=== PATIENT | female | born 1995 | race Caucasian/White ===

== ENCOUNTER 2019-07-23 06:28 | Emergency (ER) | payer OTHER ==
[2019-07-23 06:42] VITALS: TEMP 98
[2019-07-23] MEDS ORDERED: KETOROLAC 60 MG/2 ML VIAL IM STA (07:02)
[2019-07-23] MEDS ORDERED: ORPHENADRINE 30 MG/ML 2 ML VIAL IM STA (07:02)
--- NOTE | 2019-07-23 07:05 | ED ---
Back Pain HPI - General Chief Complaint: Back Pain/Injury Stated Complaint: Back pain Time Seen by Provider: 07/23/19 06:45 Source: patient, RN notes reviewed, old records reviewed Limitations: no limitations - History of Present Illness Initial Comments: Sánchez a 23-year-old female who presents emergency department today for evaluation with chief complaint of lower back pain with radiation towards the right hip and right upper buttocks. Patient reports she's been having symptoms of pain for the past week. Patient states she did see a chiropractor who did gentle massage over the area yesterday. She reports she woke up today with severe pain. Patient denies any fever or chills. She denies any abdominal pain nausea or vomiting. Denies dysuria or any concern for sexual transmitted infections or vaginal discharge. Patient states that she has had a history of some chronic back problems more frequently over the past few months. - Related Data Previous Rx's Medication Instructions Recorded Cephalexin [Keflex] 500 mg PO Q6HR 3 Days #12 cap 07/23/19 Dexamethasone 0.75 mg PO DAILY #12 tab 07/23/19 Ibuprofen [Motrin] 600 mg PO Q8HR PRN #20 tab 07/23/19 Orphenadrine [Norflex] 100 mg PO Q12H #20 tablet.er 07/23/19 Allergies Allergy/AdvReac Type Severity Reaction Status Date / Time No Known Allergies Allergy Verified 07/23/19 06:42 Review of Systems ROS Statement: Those systems with pertinent positive or pertinent negative responses have been documented in the HPI. ROS Other: All systems not noted in ROS Statement are negative. Past Medical History Past Medical History: No Reported History History of Any Multi-Drug Resistant Organisms: None Reported Past Surgical History: Orthopedic Surgery Past Psychological History: ADD/ADHD Smoking Status: Never smoker Past Alcohol Use History: Occasional Past Drug Use History: None Reported General Exam - General Exam Comments Initial Comments: This is an alert and oriented 23-year-old female. No acute distress. Limitations: no limitations General appearance: alert, in no apparent distress Head exam: Present: atraumatic, normocephalic, normal inspection Eye exam: Present: normal appearance, PERRL, EOMI. Absent: scleral icterus, conjunctival injection, periorbital swelling ENT exam: Present: normal exam, normal oropharynx, mucous membranes moist Neck exam: Present: normal inspection. Absent: tenderness, meningismus, lymphadenopathy Respiratory exam: Present: normal lung sounds bilaterally. Absent: respiratory distress, wheezes, rales, rhonchi, stridor Cardiovascular Exam: Present: regular rate, normal rhythm, normal heart sounds. Absent: systolic murmur, diastolic murmur, rubs, gallop, clicks GI/Abdominal exam: Present: soft, normal bowel sounds. Absent: distended, tenderness, guarding, rebound, rigid Extremities exam: Present: normal inspection, full ROM, normal capillary refill. Absent: tenderness, pedal edema, joint swelling, calf tenderness Back exam: Present: normal inspection, full ROM, tenderness (lumbar right paraspinal tenderness) Neurological exam: Present: alert, oriented X3, CN II-XII intact Psychiatric exam: Present: normal affect, normal mood Skin exam: Present: warm, dry, intact, normal color. Absent: rash Course Vital Signs 07/23/19 06:35 Temperature 98 F Pulse Rate 86 Respiratory 18 Rate Blood Pressure 154/87 O2 Sat by Pulse 97 Oximetry Medical Decision Making - Medical Decision Making 23-year-old female presents returns today with her back pain with radiation towards the right hip. At this time patient's labs are reviewed of UA shows minor signs of urinary tract infection. Urine culture be completed. Discussed starting Patient on short course of Keflex at this time. Patient lumbar spine x-rays negative for any acute process. She does feel better after receiving Toradol and Norflex and symptoms are related to muscle spasm and tension her. I discussed alternate between anti-inflammatory medicine and muscle relaxers. Patient can have close follow-up with primary care doctor. - Lab Data Lab Results 07/23/19 07/23/19 Range/Units 07:04 07:04 Urine Color Yellow Urine Appearance Cloudy H (Clear) Urine pH 6.0 (5.0-8.0) Ur Specific [place] 1.015 (1.001-1.035) Urine Protein Negative (Negative) Urine Glucose (UA) Negative (Negative) Urine Ketones Negative (Negative) Urine Blood Negative (Negative) Urine Nitrite Negative (Negative) Urine Bilirubin Negative (Negative) Urine Urobilinogen <2.0 (<2.0) mg/dL Ur Leukocyte Esterase Large H (Negative) Urine RBC 6 H (0-5) /hpf Urine WBC 36 H (0-5) /hpf Ur Squamous Epith Cells 14 H (0-4) /hpf Urine Bacteria Many H (None) /hpf Urine Mucus Rare H (None) /hpf Urine HCG, Qual Not Detected (Not Detectd) - Radiology Data Radiology results: report reviewed 5 lumbar vertebral bodies identified lumbar spine is satisfactory alignment without acute fracture dislocation. Vertebral body heightare normal. The over lying soft tissue is unremarkable. Disposition Clinical Impression: Back pain, Muscle spasm Disposition: HOME SELF-CARE Condition: Good Instructions (If sedation given, give patient instructions): Muscle Spasm (ED) Additional Instructions: Patient is advised to apply warm compresses over the back to help relax the muscles. Taking the muscle relaxers and 10 times for medicine as prescribed. Recommended finishing the short course of antibiotics for suspected UTI. Return to the ED if any alarming signs or symptoms occur. Prescriptions: Dexamethasone 0.75 mg PO DAILY #12 tab Cephalexin [Keflex] 500 mg PO Q6HR 3 Days #12 cap Ibuprofen [Motrin] 600 mg PO Q8HR PRN #20 tab PRN Reason: Pain Orphenadrine [Norflex] 100 mg PO Q12H #20 tablet.er Is patient prescribed a controlled substance at d/c from ED?: No Referrals: Mei Avalos MD [Primary Care Provider] - 1-2 days Time of Disposition: 08:23
[2019-07-23 07:27] LABS: Appearance,Urine Cloudy (Clear); Bacteria,Urine Many /hpf; Bilirubin,Urine Negative (Negative); Blood,Urine Negative (Negative); Color,Urine Yellow; Glucose,Urine (UA) Negative (Negative); Ketones,Urine Negative (Negative); Leukocyte Esterase,Urine Large (Negative); Mucus,Urine Rare /hpf; Nitrite,Urine Negative (Negative); Protein,Urine Negative (Negative); RBC,Urine 6 /hpf (0-5); Specific Gravity,Urine 1.015 (1.001-1.035); Squamous Epithelial Cell,Urine 14 /hpf (0-4); Urobilinogen,Urine <2.0 mg/dL (<2.0); WBC,Urine 36 /hpf (0-5)
--- NOTE | 2019-07-23 08:14 | XR ---
EXAMINATION TYPE: XR lumbar spine 2 or 3V DATE OF EXAM: 07/23/2019 CLINICAL HISTORY: Pain. TECHNIQUE: Frontal and lateral images of the lumbar spine are obtained. COMPARISON: None FINDINGS: There are 5 lumbar type vertebral bodies identified. The lumbar spine shows satisfactory alignment without evidence of acute fracture or dislocation. Vertebral body heights and disk space he ights are within normal limits. The overlying soft tissue appears unremarkable. IMPRESSION: As above.
[2019-07-23 08:35] VITALS: BP 142/76; PULSE 88; RESP 16
== END 2019-07-23 08:34 | disposition home or self-care (01) ==
LOC: EC 06:28
DX: M54.5 Low back pain (principal); M62.830 Muscle spasm of back
CPT/HCPCS: 81001; 81025; 87086; 72100; 99284; 96372 ×2; J2360; J1885